=== PATIENT | female | born 1945 | race Caucasian/White ===

== ENCOUNTER 2022-05-31 03:29 | Inpatient (IN) | payer MEDICARE ==
[~2022-05-31] VITALS: Ht 170.2 cm; Wt 97.0 kg
[2022-05-31 03:59] LABS: BASOPHILS ABSOLUTE AUTO 0.05 K/mm3 (0.00-0.23); BASOPHILS PERCENT AUTO 0 % (0-2); EOSINOPHILS ABSOLUTE AUTO 0.31 K/mm3 (0.00-0.68); EOSINOPHILS PERCENT AUTO 2 % (0-6); Hemoglobin 10.3 g/dL (11.5-16.0); IMMATURE GRAN ABSOLUTE AUTO 0.05 K/mm3 (0.00-0.10); IMMATURE GRAN PERCENT AUTO 0 % (0-1); LYMPHOCYTES ABSOLUTE AUTO 2.23 K/mm3 (0.84-5.20); LYMPHOCYTES PERCENT AUTO 17 % (21-46); MONOCYTES ABSOLUTE AUTO 0.95 K/mm3 (0.16-1.47); MONOCYTES PERCENT AUTO 7 % (4-13); Mean Corpuscular HGB 28.9 pg (26.0-34.0); Mean Corpuscular HGB Conc 31.2 g/dL (31.5-36.5); Mean Corpuscular Volume 92 fL (80-100); Mean Platelet Volume 10.8 fL (9.1-12.4); NEUTROPHILS PERCENT AUTO 73 % (41-73); Platelet Count 224 K/mm3 (150-400); RDW Coefficient Variation 12.7 % (11.7-14.2); RDW Standard Deviation 43.3 fL (35.1-46.3); Red Blood Cell Count 3.57 M/mm3 (3.80-5.20); White Blood Cell Count 13.19 K/mm3 (4.00-11.30)
[2022-05-31 04:25] LABS: Albumin, Blood 3.4 g/dL (3.4-5.0); Bilirubin, Total 0.3 mg/dL (0.1-1.0); Bun/Creatinine Ratio 26.2 (12.0-20.0); Calcium, Blood 10.2 mg/dL (8.5-10.1); Creatinine, Blood 1.6 mg/dL (0.40-1.00); Globulin, Blood 3.3 g/dL (2.2-4.0); Potassium, Blood 3.9 mmol/L (3.5-5.5); Total Protein, Blood 6.7 g/dL (6.4-8.2)
[2022-05-31] MEDS ORDERED: FURO40 PO (09:30)
[2022-05-31] MEDS ORDERED: METO50 PO (09:31)
[2022-05-31] MEDS ORDERED: LOVA40 PO (09:33)
[2022-05-31] MEDS ORDERED: Amlodipine Bes2.5 MG PO (09:33)
[2022-05-31] MEDS ORDERED: METOPROLOL TAR PO (09:33)
[2022-05-31] MEDS ORDERED: SPIR25 PO (09:35)
[2022-05-31] MEDS ORDERED: METF500 PO (09:36)
[2022-05-31] MEDS ORDERED: JARDIANCE25 MG PO (09:37)
[2022-05-31] MEDS ORDERED: CENTRUM SILVER1 EAC2 PO (09:38)
[2022-05-31] MEDS ORDERED: Calcium Carbon500 MG PO (09:38)
[2022-05-31] MEDS ORDERED: Preservision S1 EACH PO (09:38)
--- NOTE | 2022-05-31 11:32 | NUR ---
PT REFUSED FULL SKIN ASSESSMENT UPON ADMISSION TO FLOOR. PT WOULD ONLY LET THIS RN AND CARLEE BRIGGS VISUALIZE HER BILATERAL LEGS/ARMS AND UPPER BACK. PT BERBALIZED "IT WAS NOT NECESSARY," SHE "HAS NO SKIN ISSUES."
--- NOTE | 2022-05-31 17:34 | NUR ---
SHIFT SUMMARY- PAIN WELL CONTROLLED WITH IV PAIN MEDS. PT IS TOLERATING SMALL SIPS AND CHIPS.
--- NOTE | 2022-06-01 05:18 | NUR ---
PT IS A&O4, SB WITH A WALKER, 5L NC AT BASELINE, PRN PAIN MEDICATION GIVEN OVERNIGHT PER EMAR FOR LEFT AND RTIGHT UPPER QUAD PAIN, OUTSIDE REQUESTED RECORDS ON CHART FOR REVIEW, CONTINUE POC
[2022-06-01 05:58] LABS: Albumin, Blood 3.2 g/dL (3.4-5.0); Bilirubin, Total 0.3 mg/dL (0.1-1.0); Bun/Creatinine Ratio 21.2 (12.0-20.0); Calcium, Blood 9.6 mg/dL (8.5-10.1); Creatinine, Blood 1.65 mg/dL (0.40-1.00); Globulin, Blood 3.3 g/dL (2.2-4.0); Magnesium, Blood 2.3 mg/dL (1.6-2.4); Potassium, Blood 4.3 mmol/L (3.5-5.5); Total Protein, Blood 6.5 g/dL (6.4-8.2)
[2022-06-01 06:04] LABS: BASOPHILS ABSOLUTE AUTO 0.04 K/mm3 (0.00-0.23); BASOPHILS PERCENT AUTO 0 % (0-2); EOSINOPHILS ABSOLUTE AUTO 0.01 K/mm3 (0.00-0.68); EOSINOPHILS PERCENT AUTO 0 % (0-6); Hematocrit 36.1 % (33.0-51.0); IMMATURE GRAN ABSOLUTE AUTO 0.06 K/mm3 (0.00-0.10); IMMATURE GRAN PERCENT AUTO 0 % (0-1); LYMPHOCYTES ABSOLUTE AUTO 1.71 K/mm3 (0.84-5.20); LYMPHOCYTES PERCENT AUTO 9 % (21-46); MONOCYTES ABSOLUTE AUTO 1.41 K/mm3 (0.16-1.47); MONOCYTES PERCENT AUTO 8 % (4-13); Mean Corpuscular HGB 29.5 pg (26.0-34.0); Mean Corpuscular HGB Conc 30.5 g/dL (31.5-36.5); Mean Platelet Volume 11.3 fL (9.1-12.4); NEUTROPHILS ABSOLUTE AUTO 15.12 K/mm3 (1.96-9.15); NEUTROPHILS PERCENT AUTO 82 % (41-73); Platelet Count 216 K/mm3 (150-400); RDW Coefficient Variation 12.8 % (11.7-14.2); RDW Standard Deviation 45.5 fL (35.1-46.3); Red Blood Cell Count 3.73 M/mm3 (3.80-5.20); White Blood Cell Count 18.35 K/mm3 (4.00-11.30)
[2022-06-01 06:06] LABS: Mean Corpuscular Volume 97 fL (80-100)
--- NOTE | 2022-06-01 09:25 | NUR ---
ALERT AND ORIENTED, MAKES NEEDS KNOWN, [place], WAITING FOR DOCTORS TO REVIEW PATIENTS NOTES FROM OTHER HOSITAL TO DECIDE IF A CHOLITHIASIS IS APPRIATE FOR PATIENT, NPO
[2022-06-01 11:25] LABS: Source, Urine Clean Catch
[2022-06-01 11:29] LABS: Appearance, Urine Clear (Clear); Bilirubin, Urine Neg (Neg); Blood, Urine Neg (Neg); Color, Urine Yellow (P-Yellow); Glucose Qualitative, Urine 3+ (Neg); Ketones, Urine Neg (Neg); Leukocyte Esterase, Urine 2+ (Neg); Nitrite, Urine Neg (Neg); Protein, Urine 3+ (Neg); Urobilinogen, Urine NORM (Normal)
[2022-06-01 12:49] LABS: Red Blood Cells, Urine Not Seen /hpf (0-2)
[2022-06-01 12:50] LABS: Bacteria Many /hpf; Hyaline Casts 0-2 /lpf (0-2); Mucus Mod (0-Heavy); Squamous Epithelial Cells Few /hpf (Few)
[2022-06-01 16:23] LABS: Base Excess Venous 6.3 mmol/L; Bicarbonate Venous 28.5 mmol/L (24.0-30.0); PCO2 Venous 64.5 mmHg (38-42); pH Blood Venous 7.31 (7.34-7.37)
--- NOTE | 2022-06-01 18:36 | NUR ---
MAKES NEEDS KNOWN, HEART RATE INCREASES WITH ANY ACTIVITE OR PATIENT BEING EMOTIONAL, RECOVERS TO 100-120S, NORMAL MEDICATIONS STARTED TODAY, SBA, CALL LIGHT WITH IN REACH, WILL RELAY TO PM RN
[2022-06-02 05:28] LABS: BASOPHILS ABSOLUTE AUTO 0.05 K/mm3 (0.00-0.23); BASOPHILS PERCENT AUTO 0 % (0-2); EOSINOPHILS ABSOLUTE AUTO 0.02 K/mm3 (0.00-0.68); EOSINOPHILS PERCENT AUTO 0 % (0-6); Hematocrit 33.8 % (33.0-51.0); IMMATURE GRAN ABSOLUTE AUTO 0.09 K/mm3 (0.00-0.10); IMMATURE GRAN PERCENT AUTO 1 % (0-1); LYMPHOCYTES ABSOLUTE AUTO 1.84 K/mm3 (0.84-5.20); LYMPHOCYTES PERCENT AUTO 11 % (21-46); MONOCYTES PERCENT AUTO 8 % (4-13); Mean Corpuscular HGB 28.9 pg (26.0-34.0); Mean Corpuscular HGB Conc 29.6 g/dL (31.5-36.5); Mean Corpuscular Volume 98 fL (80-100); Mean Platelet Volume 11.9 fL (9.1-12.4); NEUTROPHILS ABSOLUTE AUTO 13.75 K/mm3 (1.96-9.15); NEUTROPHILS PERCENT AUTO 81 % (41-73); NRBC ABSOLUTE 0.02 K/mm3 (0.00-0.02); NRBC Auto 0.1 /100 WBC (0.0-0.2); Platelet Count 203 K/mm3 (150-400); RDW Coefficient Variation 12.9 % (11.7-14.2); RDW Standard Deviation 45.9 fL (35.1-46.3); Red Blood Cell Count 3.46 M/mm3 (3.80-5.20); White Blood Cell Count 17.05 K/mm3 (4.00-11.30)
--- NOTE | 2022-06-02 05:43 | NUR ---
PT IS A&O4, 1 ASSIST WITH A WALKER TO THE BR, 6L HIFLO NC, PRN PAIN MEDICATION PER MAR, TOLERATING FULL LIQUID DIET, VSS, NO ACUTE OVERNIGHT EVENTS CONTINUE POC
[2022-06-02 05:49] LABS: Albumin/Globulin Ratio 0.9 (0.8-1.8); Bilirubin, Total 0.4 mg/dL (0.1-1.0); Bun/Creatinine Ratio 23.2 (12.0-20.0); Calcium, Blood 9.8 mg/dL (8.5-10.1); Creatinine, Blood 2.11 mg/dL (0.40-1.00); Globulin, Blood 3.5 g/dL (2.2-4.0); Magnesium, Blood 2.7 mg/dL (1.6-2.4); Potassium, Blood 4.7 mmol/L (3.5-5.5); Total Protein, Blood 6.5 g/dL (6.4-8.2)
--- NOTE | 2022-06-02 12:37 | NUR ---
PT REQUESTS NO CAFFEINE AND ADA DIET. DIET ORDER UPDATED TO REFLECT PT NEEDS/WANTS.
--- NOTE | 2022-06-02 18:00 | NUR ---
SHIFT SUMMARY: PT A/O X 4 STANDBY ASSIST WITH WALKER, PLEASANT AND COOPERATIVE WITH CARE. PT REPORTED R SIDE ABD PAIN THIS AM. DILAUDID WAS EFFECTIVE IN TREATING PAIN AND SHE HAS NOT REQUESTED ANY FURTHER. TOLERATING FULL LIQUID DIET AT THIS TIME. PT GETS VERY WINDED WITH AMBULATION, RECOVERS QUICKLY, EXP WHEEZES NOTED THIS AFTERNOON AND [place] REQUESTED FROM RT. PT IN ROOM EATING DINNER WITH SPOUSE PRESENT, NO REPORTED CONCERNS AT THIS TIME.
--- NOTE | 2022-06-03 05:06 | NUR ---
SHIFT SUMMARY PT TOLERATING LIQUID DIET. DENIES NAUSEA, COMPLAINS OF SOME PAIN AT THE BEGINNING OF SHIFT. PT CAN BE IMPATIETN WITH CARE AND NEEDS TO BE REMINDED THAT STAFF WILL ATTEND TO HER NEEDS QUICKLY THEY CAN, BUT NEED TIME TO CARE FOR OTHER PATIENTS. VERY PARTICULAR WITH CARE. PT UP STANDY TO THE BATHROOM. BED IN LOWEST POSITION AND CALL LIGHT IN REACH.
[2022-06-03 05:29] LABS: BASOPHILS ABSOLUTE AUTO 0.04 K/mm3 (0.00-0.23); BASOPHILS PERCENT AUTO 0 % (0-2); EOSINOPHILS ABSOLUTE AUTO 0.16 K/mm3 (0.00-0.68); EOSINOPHILS PERCENT AUTO 2 % (0-6); Hematocrit 31.8 % (33.0-51.0); Hemoglobin 9.5 g/dL (11.5-16.0); IMMATURE GRAN ABSOLUTE AUTO 0.06 K/mm3 (0.00-0.10); IMMATURE GRAN PERCENT AUTO 1 % (0-1); LYMPHOCYTES ABSOLUTE AUTO 1.94 K/mm3 (0.84-5.20); LYMPHOCYTES PERCENT AUTO 19 % (21-46); MONOCYTES ABSOLUTE AUTO 0.82 K/mm3 (0.16-1.47); MONOCYTES PERCENT AUTO 8 % (4-13); Mean Corpuscular HGB 28.8 pg (26.0-34.0); Mean Corpuscular HGB Conc 29.9 g/dL (31.5-36.5); Mean Corpuscular Volume 96 fL (80-100); Mean Platelet Volume 11.7 fL (9.1-12.4); NEUTROPHILS ABSOLUTE AUTO 7.47 K/mm3 (1.96-9.15); NEUTROPHILS PERCENT AUTO 71 % (41-73); Platelet Count 192 K/mm3 (150-400); RDW Coefficient Variation 12.8 % (11.7-14.2); RDW Standard Deviation 45.2 fL (35.1-46.3); White Blood Cell Count 10.49 K/mm3 (4.00-11.30)
[2022-06-03 06:07] LABS: Albumin, Blood 2.8 g/dL (3.4-5.0); Albumin/Globulin Ratio 0.8 (0.8-1.8); Bilirubin, Total 0.2 mg/dL (0.1-1.0); Bun/Creatinine Ratio 25.5 (12.0-20.0); Calcium, Blood 9.3 mg/dL (8.5-10.1); Creatinine, Blood 2.35 mg/dL (0.40-1.00); Globulin, Blood 3.5 g/dL (2.2-4.0); Magnesium, Blood 2.9 mg/dL (1.6-2.4); Potassium, Blood 4.4 mmol/L (3.5-5.5); Total Protein, Blood 6.3 g/dL (6.4-8.2)
--- NOTE | 2022-06-03 17:06 | NUR ---
SHIFT SUMMARY NO ACUTE CHANGES DURING SHIFT. PT ALERT AND ORIENTED, CALLS APPROPRIATELY. PT ON 5L NC, INCREASED TO 7 WITH AMBULATION. PT SBA FWW TO BATHROOM. PT MEDICATED WITH PRN PAIN MEDICATIONS X 1. WILL MONITOR FOR EFFECTIVENESS. 500ML NS INFUSED. WILL CONTINUE TO MONITOR. CALL LIGHT WITHIN REACH.
[2022-06-03] MEDS ORDERED: SYMBICORT 160-4.6 GM INH (19:31)
--- NOTE | 2022-06-04 04:45 | NUR ---
Shift Summary No c/o of pain or nausea this shift. Pt did state her skin was itchy, applied mosturizing cream which provided relief. Pt requested two breathing treatments, the first for wheezing and the second for tightness. She remains on 5L O2 via NC with bubbler at rest, 7L with ambulation. On tele running SR. Slept t/o most of the night. VSS, pleasant and cooperative.
[2022-06-04 06:13] LABS: BASOPHILS ABSOLUTE AUTO 0.04 K/mm3 (0.00-0.23); BASOPHILS PERCENT AUTO 0 % (0-2); EOSINOPHILS PERCENT AUTO 2 % (0-6); Hematocrit 30.7 % (33.0-51.0); Hemoglobin 9.5 g/dL (11.5-16.0); IMMATURE GRAN ABSOLUTE AUTO 0.04 K/mm3 (0.00-0.10); IMMATURE GRAN PERCENT AUTO 0 % (0-1); LYMPHOCYTES ABSOLUTE AUTO 2.34 K/mm3 (0.84-5.20); LYMPHOCYTES PERCENT AUTO 26 % (21-46); MONOCYTES ABSOLUTE AUTO 0.65 K/mm3 (0.16-1.47); MONOCYTES PERCENT AUTO 7 % (4-13); Mean Corpuscular HGB 29.2 pg (26.0-34.0); Mean Corpuscular HGB Conc 30.9 g/dL (31.5-36.5); Mean Corpuscular Volume 95 fL (80-100); Mean Platelet Volume 11.2 fL (9.1-12.4); NEUTROPHILS ABSOLUTE AUTO 5.76 K/mm3 (1.96-9.15); NEUTROPHILS PERCENT AUTO 64 % (41-73); Platelet Count 220 K/mm3 (150-400); RDW Coefficient Variation 12.8 % (11.7-14.2); RDW Standard Deviation 44.2 fL (35.1-46.3); Red Blood Cell Count 3.25 M/mm3 (3.80-5.20); White Blood Cell Count 9.03 K/mm3 (4.00-11.30)
[2022-06-04 06:49] LABS: Albumin, Blood 2.9 g/dL (3.4-5.0); Albumin/Globulin Ratio 0.8 (0.8-1.8); Bilirubin, Total 0.3 mg/dL (0.1-1.0); Bun/Creatinine Ratio 28.6 (12.0-20.0); Calcium, Blood 8.7 mg/dL (8.5-10.1); Creatinine, Blood 2.03 mg/dL (0.40-1.00); Globulin, Blood 3.5 g/dL (2.2-4.0); Potassium, Blood 3.9 mmol/L (3.5-5.5); Total Protein, Blood 6.4 g/dL (6.4-8.2)
[2022-06-04] MEDS ORDERED: CREON DR 12,001 EACH PO (11:43)
--- NOTE | 2022-06-04 14:20 | NUR ---
PT DISCHARGED THE PT VERBALIZED UNDERSTANDING OF DC ORDERS. OXYGEN WAS DELIVERED PRIOIR TO DC. THE PT WAS TRANSFERED VIA WHEELCHAIR TO THE FRONT ACCOMPANIED BY THE URBAN REDEVELOPMENT SPECIALIST AND HER
== END 2022-06-04 14:16 | disposition home or self-care (01) | DRG 438 ==
LOC: ER 03:29 → MEDS 05:40
PROVIDERS: Family Medicine; Student in an Organized Health Care Education/Training Program; ADMIT Internal Medicine
DX: K85.10 Biliary acute pancreatitis without necrosis or infection (principal); R65.11 Systemic inflammatory response syndrome (SIRS) of non-infectious origin with acute organ dysfunction; I13.0 Hypertensive heart and chronic kidney disease with heart failure and stage 1 through stage 4 chronic kidney disease, or unspecified chronic kidney disease; N17.9 Acute kidney failure, unspecified; N18.4 Chronic kidney disease, stage 4 (severe); I42.9 Cardiomyopathy, unspecified; K80.70 Calculus of gallbladder and bile duct without cholecystitis without obstruction; Z66 Do not resuscitate; I27.20 Pulmonary hypertension, unspecified; R82.71 Bacteriuria; J44.9 Chronic obstructive pulmonary disease, unspecified; E11.22 Type 2 diabetes mellitus with diabetic chronic kidney disease; K21.9 Gastro-esophageal reflux disease without esophagitis; I50.812 Chronic right heart failure; T50.1X5A Adverse effect of loop [high-ceiling] diuretics, initial encounter; Z99.81 Dependence on supplemental oxygen
CPT/HCPCS: 36415; 71045; 76705; 80053; 81001; 82803; 82947; 83690; 83735; 84484; 85025; 87086; 93005; 93010; 93306; 94640; 94664; 94760; 96374; 96375; 99285-25; A9270; J1170; J1650; J2405; J7030; J7040

== ENCOUNTER → 2023-03-27 | Outpatient (CLI) | payer OTHER ==
[~2023-03-27] MED LIST: Amlodipine Bes2.5 MG PO; CENTRUM SILVER1 EAC2 PO; CREON DR 12,001 EACH PO; Calcium Carbon500 MG PO; FURO40 PO; JARDIANCE25 MG PO; LOVA40 PO; METF500 PO; METO50 PO; METOPROLOL TAR PO; Preservision S1 EACH PO; SPIR25 PO; SYMBICORT 160-4.6 GM INH
[2023-03-27 16:07] LABS: Source, Urine Clean Catch
[2023-03-27 17:01] LABS: Appearance, Urine Hazy (Clear); Bilirubin, Urine Neg (Neg); Blood, Urine 1+ (Neg); Color, Urine Yellow (P-Yellow); Glucose Qualitative, Urine 2+ (Neg); Ketones, Urine Neg (Neg); Leukocyte Esterase, Urine 2+ (Neg); Nitrite, Urine Neg (Neg); Protein, Urine 2+ (Neg); Urobilinogen, Urine NORM (Normal); pH, Urine 6.5 (5.0-8.0)
[2023-03-27 17:11] LABS: Bacteria Few /hpf; Squamous Epithelial Cells Rare /hpf (Few); White Blood Cells, Urine TNTC /hpf (0-5)
== END ==
LOC: LAB SHORT 14:00 → LAB 14:00
PROVIDERS: Hospitalist
DX: N18.4 Chronic kidney disease, stage 4 (severe) (principal); R39.9 Unspecified symptoms and signs involving the genitourinary system
CPT/HCPCS: 81001; 87077; 87086; 87186

== ENCOUNTER 2023-12-22 19:01 | Emergency (ER) | payer OTHER ==
[~2023-12-22] VITALS: Ht 170.2 cm; Wt 84.4 kg
[~2023-12-22 19:01] MED LIST changes: +ALBU90OI INH; +CALCIUM 600 +1 EA11 PO; +FURO20 PO; +TIOT18 INH
[2023-12-22 19:42] LABS: BASOPHILS ABSOLUTE AUTO 0.06 K/mm3 (0.00-0.23); BASOPHILS PERCENT AUTO 1 % (0-2); EOSINOPHILS ABSOLUTE AUTO 0.24 K/mm3 (0.00-0.68); EOSINOPHILS PERCENT AUTO 2 % (0-6); Hematocrit 41.2 % (33.0-51.0); Hemoglobin 13.5 g/dL (11.5-16.0); IMMATURE GRAN ABSOLUTE AUTO 0.04 K/mm3 (0.00-0.10); IMMATURE GRAN PERCENT AUTO 0 % (0-1); LYMPHOCYTES ABSOLUTE AUTO 3.43 K/mm3 (0.84-5.20); LYMPHOCYTES PERCENT AUTO 30 % (21-46); MONOCYTES ABSOLUTE AUTO 1.05 K/mm3 (0.16-1.47); MONOCYTES PERCENT AUTO 9 % (4-13); Mean Corpuscular HGB 29.8 pg (26.0-34.0); Mean Corpuscular HGB Conc 32.8 g/dL (31.5-36.5); Mean Corpuscular Volume 91 fL (80-100); Mean Platelet Volume 10.7 fL (9.1-12.4); NEUTROPHILS ABSOLUTE AUTO 6.65 K/mm3 (1.96-9.15); NEUTROPHILS PERCENT AUTO 58 % (41-73); Platelet Count 262 K/mm3 (150-400); RDW Coefficient Variation 12.2 % (11.7-14.2); RDW Standard Deviation 40.2 fL (35.1-46.3); Red Blood Cell Count 4.53 M/mm3 (3.80-5.20); White Blood Cell Count 11.47 K/mm3 (4.00-11.30)
[2023-12-22 20:01] LABS: Bilirubin, Total 0.3 mg/dL (0.1-1.0); Bun/Creatinine Ratio 24.4 (12.0-20.0); Creatinine, Blood 2.13 mg/dL (0.40-1.00); Globulin, Blood 3.9 g/dL (2.2-4.0); Potassium, Blood 3.9 mmol/L (3.5-5.5); Total Protein, Blood 7.9 g/dL (6.4-8.2)
[2023-12-22 21:00] LABS: Magnesium, Blood 2.9 mg/dL (1.6-2.4)
[2023-12-22 21:30] VITALS: BP 103/78
== END 2023-12-22 21:38 | disposition home or self-care (01) ==
LOC: ER 19:01
PROVIDERS: Physician Assistant
DX: I49.9 Cardiac arrhythmia, unspecified (principal); K21.9 Gastro-esophageal reflux disease without esophagitis; E11.22 Type 2 diabetes mellitus with diabetic chronic kidney disease; N18.4 Chronic kidney disease, stage 4 (severe); J44.9 Chronic obstructive pulmonary disease, unspecified; Z87.891 Personal history of nicotine dependence; Z79.899 Other long term (current) drug therapy; Z88.2 Allergy status to sulfonamides; Z88.0 Allergy status to penicillin; Z88.1 Allergy status to other antibiotic agents
CPT/HCPCS: 71045; 80053; 83735; 84484; 85025; 93005; 93010; 99285-25

== ENCOUNTER 2024-04-02 11:58 | Inpatient (IN) | payer OTHER ==
[~2024-04-02] VITALS: Ht 170.2 cm; Wt 90.6 kg
[2024-04-02] VITALS (40 sets, daily range): BP systolic 92–142; BP diastolic 52–124
[2024-04-02 12:29] LABS: BASOPHILS ABSOLUTE AUTO 0.08 K/mm3 (0.00-0.23); BASOPHILS PERCENT AUTO 1 % (0-2); EOSINOPHILS ABSOLUTE AUTO 0.16 K/mm3 (0.00-0.68); EOSINOPHILS PERCENT AUTO 1 % (0-6); Hematocrit 41.6 % (33.0-51.0); Hemoglobin 13.6 g/dL (11.5-16.0); IMMATURE GRAN ABSOLUTE AUTO 0.04 K/mm3 (0.00-0.10); IMMATURE GRAN PERCENT AUTO 0 % (0-1); LYMPHOCYTES ABSOLUTE AUTO 3.64 K/mm3 (0.84-5.20); LYMPHOCYTES PERCENT AUTO 28 % (21-46); MONOCYTES PERCENT AUTO 8 % (4-13); Mean Corpuscular HGB 30.2 pg (26.0-34.0); Mean Corpuscular HGB Conc 32.7 g/dL (31.5-36.5); Mean Corpuscular Volume 92 fL (80-100); Mean Platelet Volume 11.4 fL (9.1-12.4); NEUTROPHILS ABSOLUTE AUTO 8.14 K/mm3 (1.96-9.15); NEUTROPHILS PERCENT AUTO 62 % (41-73); Platelet Count 202 K/mm3 (150-400); RDW Coefficient Variation 12.3 % (11.7-14.2); RDW Standard Deviation 41.6 fL (35.1-46.3); White Blood Cell Count 13.06 K/mm3 (4.00-11.30)
[2024-04-02] MEDS ORDERED: Metoprolol Tartrate 1 MG/ML 5 ML VIAL IV ONE ×2 (12:30→12:50)
[2024-04-02 12:52] LABS: Albumin, Blood 3.8 g/dL (3.4-5.0); Bilirubin, Total 0.4 mg/dL (0.1-1.0); Bun/Creatinine Ratio 26.9 (12.0-20.0); Creatinine, Blood 1.86 mg/dL (0.40-1.00); Globulin, Blood 3.8 g/dL (2.2-4.0); Potassium, Blood 4.7 mmol/L (3.5-5.5); Total Protein, Blood 7.6 g/dL (6.4-8.2)
[2024-04-02] MEDS ORDERED: FLU VACC TS2024-25(6MOS UP)/PF 45 MCG/0.5 ML SYRINGE IM SCH (14:15)
[2024-04-02] MEDS ORDERED: Dose Adjust by Pharmacy XX STA (17:38)
[2024-04-02] MEDS ORDERED: Heparin Sodium 5000 Units/ML 1ML MDV IV ONE (17:40)
[2024-04-02] MEDS ORDERED: Heparin Sodium,Porcine/0.5 NS 500 ML IV SCH (17:40)
[2024-04-02 17:45] LABS: Anti-Xa UFH, PHA Monitoring <0.10 IU/mL; International Normalized Ratio 0.99; Prothrombin Time Results 10.6 Sec (9.7-11.5)
[2024-04-02] MEDS ORDERED: Albuterol HFA200 ACT/6.7 GM INH INH PRN (17:55)
[2024-04-02] MEDS ORDERED: Tiotropium Bromide 2.5 MCG/ACT MIST INHAL (10 ACT/4 GM) INH SCH (17:55)
[2024-04-02] MEDS ORDERED: Metoprolol Tartrate 50 MG Tab PO SCH ×2 (18:00→21:00)
--- NOTE | 2024-04-02 19:34 | NUR ---
ASSUMPTION OF CARE/ SHIFT SUMMARY PT FROM ER @ APPROX 1300, PT SELF TRANSFERRED FROM ER BED TO PCU BED. PT A&O X4, ABLE TO MAKE NEEDS KNOWN, OBEYS COMMANDS, PT EDUCATED TO CALL PRIOR TO AMBULATING/PT VERBALIZED UNDERSTANDING. CONTINUOUS SPO2, SPO2 GREATER THAN 90% ON 4L O2 VIA NC/THAT IS PT BASELINE, LUNGS SOUND CLEAR T/O WITH DIMINISHED LOWER LOBES, NO SIGNS OF RESPIRATORY DISTRESS NOTED. CONTINUOUS TELE MONTIORING, PT ON DILIAZEM DRIP OF 10MLS/HR, BP STABLE WITH MAP GREATER THAN 65. PT REPORTS BEING CONTINENT OF BOTH URINE AND BOWELS, NO VOID OR BM SINCE ARRIVING TO PCU.
--- NOTE | 2024-04-02 19:51 | NUR ---
[facility] ASSUMED CARE OF PT AT 1900,BEDSIDE REPORT COMPLETED WITH [facility] NURSE.PT AWAKE,RESTING IN BED.CARDIZEM DRIP INFUSING AT 10MG/HR,HR 116-129,SBP 100'S.HEPARIN INFUSING AT 21.9ML/HR.EDUCATION ON BLEEDING RISK COMPLETED.PT DENIES CHEST PAIN,DENIES PALPITATIONS,DENIES NEEDS AT THIS TIME.PLAN OF CARE REVIEWED.PT VERBALIZES UNDERSTANDING.CALL LIGHT AND PT'S ITEMS WITHIN REACH.WILL CONTINUE TO MONITOR.
[2024-04-02] MEDS ORDERED: Mag Hydrox/AL Hydrox/Simeth 30 ML UDC PO SCH (21:00)
[2024-04-02] MEDS ORDERED: Calcium/Vit D 600 mg-400 Unit Tab PO SCH (21:00)
[2024-04-02] MEDS ORDERED: Acetaminophen 500 MG Tab PO PRN (21:05)
--- NOTE | 2024-04-02 22:08 | NUR ---
BRADYCARDIA PT'S BRADYCARDIC,HR 38,PT ASYMPTOMATIC.CARDIZEM DRIP STOPPED,BP 111/96 (103).PT STATES THAT AT HOME SHE HAD EPISODES OF BRADYCARDIA, HR DROPPING LOW 20 THEN TACHYCARDIA HIGH 200.CURRENTLY AT 40 WITH THE DRIP OFF.WILL CONTINUE TO MONITOR.
--- NOTE | 2024-04-02 23:24 | NUR ---
PROVIDER NOTIFICATION JASON Benavidez NP AT 2209 OF PT'S BRADYCARDIA .PT ASYMPTOMATIC.PROVIDER STATES TO OBTAIN AN EKG.EKG OBTAINED ,PROVIDER CALLED BACK AT 2241 AND THE EKG RESULTS READ TO HIM.PROVIDER STATES TO MONITOR BP'S BP AND KEEP HIM UPDATED IF HR STAYS LOW AND IF THERE ARE CHANGES IN PT'S CONDITION.
[2024-04-03] VITALS (8 sets, daily range): BP systolic 104–135; BP diastolic 62–98
[2024-04-03 01:18] LABS: BASOPHILS ABSOLUTE AUTO 0.06 K/mm3 (0.00-0.23); BASOPHILS PERCENT AUTO 1 % (0-2); EOSINOPHILS ABSOLUTE AUTO 0.19 K/mm3 (0.00-0.68); EOSINOPHILS PERCENT AUTO 2 % (0-6); Hematocrit 36.4 % (33.0-51.0); IMMATURE GRAN ABSOLUTE AUTO 0.05 K/mm3 (0.00-0.10); IMMATURE GRAN PERCENT AUTO 0 % (0-1); LYMPHOCYTES ABSOLUTE AUTO 2.99 K/mm3 (0.84-5.20); LYMPHOCYTES PERCENT AUTO 25 % (21-46); MONOCYTES ABSOLUTE AUTO 1.06 K/mm3 (0.16-1.47); MONOCYTES PERCENT AUTO 9 % (4-13); Mean Corpuscular HGB 30.5 pg (26.0-34.0); Mean Corpuscular Volume 92 fL (80-100); Mean Platelet Volume 11.2 fL (9.1-12.4); NEUTROPHILS ABSOLUTE AUTO 7.54 K/mm3 (1.96-9.15); NEUTROPHILS PERCENT AUTO 64 % (41-73); Platelet Count 200 K/mm3 (150-400); RDW Coefficient Variation 12.2 % (11.7-14.2); RDW Standard Deviation 41.8 fL (35.1-46.3); Red Blood Cell Count 3.94 M/mm3 (3.80-5.20); White Blood Cell Count 11.89 K/mm3 (4.00-11.30)
[2024-04-03 01:42] LABS: Albumin, Blood 3.3 g/dL (3.4-5.0); Albumin/Globulin Ratio 1.1 (0.8-1.8); Bilirubin, Total 0.3 mg/dL (0.1-1.0); Bun/Creatinine Ratio 23.1 (12.0-20.0); Creatinine, Blood 2.21 mg/dL (0.40-1.00); Magnesium, Blood 2.8 mg/dL (1.6-2.4); Phosphorus, Blood 3.8 mg/dL (2.5-4.9); Total Protein, Blood 6.3 g/dL (6.4-8.2)
[2024-04-03] MEDS ORDERED: Dose Adjust by Pharmacy XX STA (01:43)
[2024-04-03] MEDS ORDERED: Pantoprazole Sodium 20 MG Tab PO SCH (06:00)
--- NOTE | 2024-04-03 06:38 | NUR ---
SHIFT SUMMARY PT'S RHYTHM FLIPPED FROM AFIB WITH RVR AT 2343 INFORMED BY THE QUAD STAYER.PT'S SINUS DUSTY,HR 58 TO SINUS RHYTHM AT 61BPM (SEE PREVIOUS NOTES FOR THE OTHER EVENTS OVERNIGHT).PT AWAKE AT THIS TIME,DENIES CHEST PAIN,DENIES SOB,DENIES NEEDS.CALL LIGHT AND PT'S ITEMS WITHIN REACH.WILL GIVE REPORT TO DAYSHIFT NURSE, .
[2024-04-03] MEDS ORDERED: Metoprolol Tartrate 50 MG Tab PO SCH ×2 (09:00)
[2024-04-03] MEDS ORDERED: Furosemide 20 MG Tab PO SCH (09:00)
[2024-04-03] MEDS ORDERED: Spironolactone 25 MG Tab PO SCH (09:00)
[2024-04-03] MEDS ORDERED: Calcium Carbonate 500 MG Tab Chew PO SCH (09:00)
[2024-04-03] MEDS ORDERED: METO100 PO (12:02)
--- NOTE | 2024-04-03 12:39 | NUR ---
DISCHARGE SUMMARY PT A&Ox4, CALLS AND COMMUNICATES NEEDS APPROPRIATELY. BP STABLE, PT REMAINED SINUS 70's, DENIES CP/PRESSURE. SpO2> 92% ON BASELINE 4L VIA NC. SBA IN ROOM, CONTINENT OF URINE, NO BM THIS SHIFT. NO C/O PAIN. DISCHARGE EDUCATION PROVIDED WITH VISITOR AT BEDSIDE. ALL PT BELONGINGS GATHERED AND SENT WITH VISITOR. PT TAKEN OUT VIA WHEELCHAIR WITH HOME O2 BY CLINICAL STAFF MEMBER AT APPROXIMATELY 1240.
== END 2024-04-03 13:02 | disposition home health service (06) | DRG 309 ==
LOC: ER 11:58 → PCU 14:09 → ER 15:38 → PCU 16:48
PROVIDERS: Physician Assistant; ADMIT Family Medicine
DX: I48.91 Unspecified atrial fibrillation (principal); N18.4 Chronic kidney disease, stage 4 (severe); J44.9 Chronic obstructive pulmonary disease, unspecified; I12.9 Hypertensive chronic kidney disease with stage 1 through stage 4 chronic kidney disease, or unspecified chronic kidney disease; E11.22 Type 2 diabetes mellitus with diabetic chronic kidney disease; I27.20 Pulmonary hypertension, unspecified; I42.9 Cardiomyopathy, unspecified; Z99.81 Dependence on supplemental oxygen; Z88.2 Allergy status to sulfonamides; Z88.0 Allergy status to penicillin; Z88.8 Allergy status to other drugs, medicaments and biological substances; Z79.899 Other long term (current) drug therapy; Z90.49 Acquired absence of other specified parts of digestive tract
CPT/HCPCS: 36415; 71045; 80053; 83735; 84100; 84484; 85025; 85520; 85610; 85730; 93005; 93010; 94640; 94664; 94760; 94762; 96365; 96375; 99285-25; A9270; J1644; J2470

== ENCOUNTER 2024-11-04 04:25 | Inpatient (IN) | payer OTHER ==
[~2024-11-04] VITALS: Ht 170.2 cm; Wt 85.5 kg
[~2024-11-04 04:25] MED LIST changes: +METO100 PO
[2024-11-04] MEDS ORDERED: Albuterol 2.5 MG/3 ML VIAL INH SCH (04:40)
[2024-11-04 04:49] LABS: BASOPHILS ABSOLUTE AUTO 0.04 K/mm3 (0.00-0.23); BASOPHILS PERCENT AUTO 0 % (0-2); EOSINOPHILS ABSOLUTE AUTO 0.10 K/mm3 (0.00-0.68); EOSINOPHILS PERCENT AUTO 1 % (0-6); Hematocrit 37.9 % (33.0-51.0); Hemoglobin 11.5 g/dL (11.5-16.0); IMMATURE GRAN ABSOLUTE AUTO 0.03 K/mm3 (0.00-0.10); IMMATURE GRAN PERCENT AUTO 0 % (0-1); LYMPHOCYTES ABSOLUTE AUTO 2.09 K/mm3 (0.84-5.20); LYMPHOCYTES PERCENT AUTO 21 % (21-46); MONOCYTES ABSOLUTE AUTO 0.84 K/mm3 (0.16-1.47); MONOCYTES PERCENT AUTO 9 % (4-13); Mean Corpuscular HGB Conc 30.3 g/dL (31.5-36.5); Mean Corpuscular Volume 95 fL (80-100); NEUTROPHILS ABSOLUTE AUTO 6.73 K/mm3 (1.96-9.15); NEUTROPHILS PERCENT AUTO 69 % (41-73); NRBC ABSOLUTE 0.00 K/mm3 (0.00-0.02); NRBC Auto 0.0 /100 WBC (0.0-0.2); Platelet Count 222 K/mm3 (150-400); RDW Coefficient Variation 11.9 % (11.7-14.2); RDW Standard Deviation 41.8 fL (35.1-46.3); pH Blood Venous 7.42 (7.34-7.37)
[2024-11-04 05:18] LABS: Anion Gap 10.0 mmol/L (3-11); Blood Urea Nitrogen 43.0 mg/dL (8-24); CO2, Blood 33.0 mmol/L (21-32); Calcium, Blood 9.3 mg/dL (8.5-10.1); Chloride, Blood 102.0 mmol/L (98-108); Creatinine, Blood 1.73 mg/dL (0.40-1.00); Glucose, Blood 110.0 mg/dL (70-99); Potassium, Blood 3.9 mmol/L (3.5-5.5); Sodium, Blood 141.0 mmol/L (136-145)
[2024-11-04] MEDS ORDERED: PRED20 PO (05:49)
[2024-11-04] MEDS ORDERED: Ipratropium/Albuterol SulF 2.5-0.5MG/3 ML Amp INH ONE (05:50)
[2024-11-04 05:58] LABS: Influenza A, PCR NEGATIVE (NEGATIVE); Influenza B, PCR NEGATIVE (NEGATIVE); Resp Syncytial Virus, PCR NEGATIVE (NEGATIVE); SARS-Cov-2 (COVID-19) PCR, MMC NEGATIVE (NEGATIVE)
[2024-11-04] MEDS ORDERED: DOXY100 PO (06:12)
[2024-11-04] MEDS ORDERED: Metoprolol Tartrate 1 MG/ML 5 ML VIAL IV PRN (06:25)
[2024-11-04] MEDS ORDERED: NS 500 ML IV SCH (09:45)
[2024-11-04] MEDS ORDERED: Ipratropium/Albuterol SulF 2.5-0.5MG/3 ML Amp INH SCH (10:50)
[2024-11-04] MEDS ORDERED: Albuterol 2.5 MG/3 ML VIAL INH PRN (10:50)
[2024-11-04 12:55] VITALS: BP 119/75
--- NOTE | 2024-11-04 15:26 | NUR ---
PALLIATIVE CARE CONSULT: CONSULT RECEIVED TO CLARIFY CODE STATUS. SPOKE TO PRIMARY RN PRIOR TO VISIT. PER RN, PT HAD STATED SHE WASN'T SURE SHE WOULD WANT CPR. MET WITH PT AND SPOUSE IN THE ROOM. PT IS ABLE TO HAVE MEANINGFUL CONVERSATION AND IS DECISIONAL. EDUCATED PT ON CPR VS DNR STATUS. PT STATES SHE WOULD NOT WANT CPR IF HER HEART STOPS. PT IS AGREEABLE TO BEING INTUBATED IF NEEDED. SHE CHOSE FULL TREATMENT IN SECTION B. PT COMPLETED A POLST. NOTIFIED DR. ASCENCIO OF PT REQUESTING DNR/FULL MEASURES. DR. ASCENCIO GAVE ORDER TO CHANGE CODE STATUS TO LIMITED, NO CPR. ORDER PLACED AND UPDATED PRIMARY RN.
[2024-11-04 16:37] VITALS: BP 129/84
[2024-11-04] MEDS ORDERED: FUROSEMIDE40 MG PO (16:39)
[2024-11-04] MEDS ORDERED: ELIQUIS2.5 M1 PO (16:41)
[2024-11-04] MEDS ORDERED: FAMO10 PO (16:41)
[2024-11-04] MEDS ORDERED: KLOR-CON 1010 ME9 PO (16:42)
[2024-11-04] MEDS ORDERED: PANTOPRAZOLE SO40 M2 PO (16:42)
--- NOTE | 2024-11-04 18:43 | NUR ---
SHIFT SUMMARY NO ACUTE EVENTS. PT AOX4 AND CALM/COOPERATIVE W/ CARE. PT REPORTS SOB W/ EXERTION. PT ON 5L VIA NC, BASELINE 02 FOR PT. PT ON TELE, AFIB RATE OF 80S. RATE INCREASES W/ EXERTION OR REPOSITIONING. BP STABLE W/ MAPS>65. PT AFEBRILE. PURE WICK PLACED AND CLEAN ATTENDS APPLIED TO PT. NO BM DURING SHIFT. BLANCHABLE REDDNESS TO SACRUM- PT HIPS FLOATED ON PILLOWS FOR SKIN INTEGRITY. CALL LIGHT W/ IN REACH. PLAN OF CARE ONGOING.
--- NOTE | 2024-11-04 19:48 | NUR ---
ASSUMPTION ON [facility] ASSUMED PT'S CARE AT 1900,BEDSIDE REPORT COMPLETED.PT IN BED,WIDE AWAKE LISTENING TO RELAXING MUSIC ON TV.PLAN OF CARE REVIEWED.PT DENIES PAIN,DENIES NUMBNESS/TINGLING,DENIES NAUSEA,DENIES SOB,DENIES NEEDS.CALL LIGHT AND PT'S ITEMS WITHIN REACH.MONITORING ONGOING PER CAREPLAN.
[2024-11-04 20:20] VITALS: BP 122/69
[2024-11-04] MEDS ORDERED: Calcium/Vit D 600 mg-400 Unit Tab PO SCH (21:00)
[2024-11-04 23:31] VITALS: BP 122/67
[2024-11-05 03:40] VITALS: BP 133/84
[2024-11-05 05:19] LABS: BASOPHILS ABSOLUTE AUTO 0.01 K/mm3 (0.00-0.23); BASOPHILS PERCENT AUTO 0 % (0-2); EOSINOPHILS ABSOLUTE AUTO 0.00 K/mm3 (0.00-0.68); EOSINOPHILS PERCENT AUTO 0 % (0-6); Hematocrit 36.1 % (33.0-51.0); Hemoglobin 11.1 g/dL (11.5-16.0); IMMATURE GRAN ABSOLUTE AUTO 0.05 K/mm3 (0.00-0.10); IMMATURE GRAN PERCENT AUTO 0 % (0-1); LYMPHOCYTES ABSOLUTE AUTO 1.35 K/mm3 (0.84-5.20); LYMPHOCYTES PERCENT AUTO 9 % (21-46); MONOCYTES ABSOLUTE AUTO 0.32 K/mm3 (0.16-1.47); MONOCYTES PERCENT AUTO 2 % (4-13); Mean Corpuscular HGB Conc 30.7 g/dL (31.5-36.5); Mean Corpuscular Volume 94 fL (80-100); NEUTROPHILS ABSOLUTE AUTO 12.98 K/mm3 (1.96-9.15); NEUTROPHILS PERCENT AUTO 88 % (41-73); NRBC ABSOLUTE 0.00 K/mm3 (0.00-0.02); NRBC Auto 0.0 /100 WBC (0.0-0.2); Platelet Count 231 K/mm3 (150-400); RDW Coefficient Variation 12.1 % (11.7-14.2); RDW Standard Deviation 41.7 fL (35.1-46.3)
[2024-11-05 05:53] LABS: Anion Gap 9.0 mmol/L (3-11); Blood Urea Nitrogen 54.0 mg/dL (8-24); CO2, Blood 33.0 mmol/L (21-32); Calcium, Blood 9.4 mg/dL (8.5-10.1); Chloride, Blood 101.0 mmol/L (98-108); Creatinine, Blood 1.79 mg/dL (0.40-1.00); Glucose, Blood 168.0 mg/dL (70-99); Potassium, Blood 4.3 mmol/L (3.5-5.5); Sodium, Blood 139.0 mmol/L (136-145)
--- NOTE | 2024-11-05 06:31 | NUR ---
PT MONITORED DURING THE SHIFT.PT SLEPT ON/OFF.PT COMPLAINED OF NECK DISCOMFORT AND BED BEING UNCOMFORTABLE.PT REPOSITIONED,PILLOWS ADJUSTED PER PT'S REQUEST.PT REFUSED TO TURN FROM SIDE TO SIDE TO TAKE THE PRESSURE OFF HER BOTTOM.PT EDUCATED ON THE NEED TO TURN FROM SIDE TO SIDE TO PREVENT PRESSURE INJURY.PT VERBALIZES UNDERSTANDING BUT STATES THAT ITS UNCOMFORTABLE TO LAY ON HER SIDE.PT MAINTAINED OXYGEN SATURATION >92 ON 5L OXYGEN VIA NC.HR HAS BEEN THE 80'S THROUGHOUT THE NIGHT.NOTED MOMENTS OF IRRITABILITY ON/OFF THROUGHTOUT THE SHIFT.PT AWAKE,PROVIDED A TOOTH BRUSH AND TOOTH PASTE PER PT'S REQUEST.PT DENIES PAIN,DENIES NEEDS A THIS TIME.CALL LIGHT AND PT'S ITEMS WITHIN REACH
[2024-11-05 07:39] VITALS: BP 131/82
[2024-11-05] MEDS ORDERED: Enoxaparin 30 MG/0.3 ML SYR SC SCH (09:00)
--- NOTE | 2024-11-05 09:15 | NUR ---
AM NOTE: PATIENT ALERT AND ORIENTED. HARD OF HEARING. COMPLAINS OF 5/10 HEADACHE AND CHRONIC NECK PAIN THIS MORNING. 1 PERSON ASSIST WITH WALKER/CANE. UP TO RECLINER FOR BREAKFAST. ON 5L NASAL CANNULA WHICH IS PATIENTS BASELINE. SATING ABOVE 95%. LUNG SOUNDS CLEAR WITH DIMINISHED BASES. DENIES COUGH. EVEN AND UNLABORED RESPIRATIONS. TELE SHOWING SINUS RHYTHM WITH HR 60'S. DENIES CHEST PAIN/PRESSURE/PALPITATIONS. MINIMAL EDEMA TO ALL EXTREMITIES. SBP 130'S. IV SALINE LOCKED. BOWEL TONES PRESENT. DENIES ABDOMINAL PAIN/NAUSEA. TOLERATING PO DIET. PATIENT REQUEST DIABETIC DIET. PUREWICK IN PLACE DUE TO INCONTINENCE. ATTENDS IN PLACE. SKIN PALE WITH SCATTERED BRUISING AND SCAB TO RIGHT MIJARES. BLANCHABLE SACRUM/COCCYX. PATIENT ENCOURAGED TO SHIFT WEIGHT AND TURN WHEN IN BED. UP IN RECLINER AT THIS TIME. CALL LIGHT IN REACH. DENIES NEEDS.
[2024-11-05 11:43] VITALS: BP 109/70
[2024-11-05 15:14] VITALS: BP 132/72
--- NOTE | 2024-11-05 18:35 | NUR ---
SHIFT SUMMARY: NO ACUTE CHANGES. PATIENT REMAINS ON BASELINE 5L NASAL CANNULA. TELE SHOWING SR WITH HR 60-70'S. DENIES PAIN. UP TO CHAIR FOR MEALS WITH 1 PERSON ASSIST. TOLERATING PO DIET. INTERMIT USE OF PUREWICK. AT BEDSIDE AND UPDATED ON PLAN OF CARE. PALLIATIVE CARE BY TO DISCUSS POLST.
[2024-11-05 19:27] VITALS: BP 116/68
--- NOTE | 2024-11-05 19:36 | NUR ---
ASSUMPTION OF CARE ASSUMED PT'S CARE AT 1900,BEDSIDE REORT COMPLETED.PT WIDE AWAKE WATCHING TV.PLAN OF CARE REVIEWED.PT REPORTS HEARTBURN AFTER EATING A SPICY DINNER.PT ASKING FOR TUMS.PT INFORMED THAT TUMS IS SCHEDULED FOR 0900 BUT SHE HAS PEPSID PRN.PT DENIES PAINS,DENIES SOB,OXYGEN SATURATION 92% ON BASELINE 5L OF OXYGEN.PT DENIES FURTHER NEEDS.CALL LIGHT AND PT'S ITEMS WITHIN REACH.MONITORING ONGOING PER CAREPLAN.
[2024-11-05 23:41] VITALS: BP 128/65
[2024-11-06 03:32] VITALS: BP 131/72
[2024-11-06 03:46] LABS: BASOPHILS ABSOLUTE AUTO 0.02 K/mm3 (0.00-0.23); BASOPHILS PERCENT AUTO 0 % (0-2); EOSINOPHILS ABSOLUTE AUTO 0.00 K/mm3 (0.00-0.68); EOSINOPHILS PERCENT AUTO 0 % (0-6); Hematocrit 35.1 % (33.0-51.0); Hemoglobin 11.0 g/dL (11.5-16.0); IMMATURE GRAN ABSOLUTE AUTO 0.09 K/mm3 (0.00-0.10); IMMATURE GRAN PERCENT AUTO 1 % (0-1); LYMPHOCYTES ABSOLUTE AUTO 1.38 K/mm3 (0.84-5.20); LYMPHOCYTES PERCENT AUTO 8 % (21-46); MONOCYTES ABSOLUTE AUTO 0.33 K/mm3 (0.16-1.47); MONOCYTES PERCENT AUTO 2 % (4-13); Mean Corpuscular HGB Conc 31.3 g/dL (31.5-36.5); Mean Corpuscular Volume 92 fL (80-100); NEUTROPHILS ABSOLUTE AUTO 15.09 K/mm3 (1.96-9.15); NEUTROPHILS PERCENT AUTO 89 % (41-73); NRBC ABSOLUTE 0.00 K/mm3 (0.00-0.02); NRBC Auto 0.0 /100 WBC (0.0-0.2); Platelet Count 222 K/mm3 (150-400); RDW Coefficient Variation 12.0 % (11.7-14.2); RDW Standard Deviation 41.0 fL (35.1-46.3)
[2024-11-06 04:08] LABS: Anion Gap 8.0 mmol/L (3-11); Blood Urea Nitrogen 58.0 mg/dL (8-24); CO2, Blood 34.0 mmol/L (21-32); Calcium, Blood 8.7 mg/dL (8.5-10.1); Chloride, Blood 98.0 mmol/L (98-108); Creatinine, Blood 1.92 mg/dL (0.40-1.00); Glucose, Blood 176.0 mg/dL (70-99); Potassium, Blood 3.9 mmol/L (3.5-5.5); Sodium, Blood 136.0 mmol/L (136-145)
--- NOTE | 2024-11-06 06:33 | NUR ---
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
[2024-11-06] MEDS ORDERED: CefTRIAXone Sodium 1,000 MG in NS 100 ML IV SCH ×2 (07:00→09:00)
[2024-11-06 08:07] VITALS: BP 135/84
--- NOTE | 2024-11-06 09:45 | NUR ---
md contacted: this rn contacted md regarding patient requesting anxiety meds and pain meds. she states "i have them at home but don't take them often". md to place orders.
[2024-11-06 11:09] VITALS: BP 116/64
--- NOTE | 2024-11-06 13:00 | NUR ---
TRANSFER NOTE REPORT GIVEN TO NURSE ON MEDICAL FLOOR. PATIENT REMAINS A/OX4, ON O2 5L/MIN SATS >90%. NO OBVIOUS RESP DISTRESS, SPEAKS IN FULL SENTENCES. PATIENT RECEIVED PAIN MEDICATION EARLIER FOR CHRONIC NECK PAIN, REPOSITOINED MULTIPLE TIMES FOR COMFORT. WAS ABLE TO TRANSFER TO [facility] WITH SBA. PATIENT ABLE TO MAKE ALL NEEDS KNOWN AND UTILIZE CALL LIGHT APPROPRIATELY. SINUS RHYTHM ON MONITOR IN 70'S WITH OCCASIONAL PAC/PVC'S. NO NOTABLE EVENTS WHILE IN CARE OF THIS RN. RECEIVED V/O FOR PT/OT EVAL PRIOR TO TRANSFER.
--- NOTE | 2024-11-06 14:02 | NUR ---
REPORT TAKEN FOR PATIENT AT 1255. PATIENT ARRIVED TO FLOOR AT 1330. ORIENTED TO ROOM AND STAFF. PATIENT ON ROOM AIR, STAND BY ASSIST, PUREWICK IN PLACE AND CONNECTED TO SUCTION. BELONGINGS AT BEDSIDE. WARM BLANKET PROVIDED. PATIENT DENIES NEEDS.
[2024-11-06 15:03] VITALS: BP 130/70
[2024-11-06] MEDS ORDERED: Polyethylene Glycol 3350 17 gm PO SCH (15:55)
--- NOTE | 2024-11-06 17:59 | NUR ---
PATIENT TRANSFERED FROM PCU TODAY. PLANS TO [place] HOME TOMORROW. PUREWICK REMOVED DURING DAY TIME. PATIENT AMBULATED TO BATHROOM TODAY WITH FRONT WHEEL WALKER AND STAND BY HELP. PULL UP IN PLACE. BOWEL CARE STARTED. ON 5 L, WHICH IS BASELINE. ALERT AND OREIENTATED.
[2024-11-06 19:18] VITALS: BP 122/74
--- NOTE | 2024-11-06 20:16 | NUR ---
pt continues to have "racing heart beat" telemetry notified this creative services writer of two twelve second run of svt per blow mold technician pt is asymptomatic other then states shortness of breathe denies pressure and chest pain A&Ox4 pt receiving respiratory treatment now. contacted provider aware
--- NOTE | 2024-11-07 04:27 | NUR ---
PT IS A&OX4 CALM AND COOPERATIVE, PT HAD SEVERAL ESPOISODES OF "HEART RACING" TELEMETRY SHOWED RUNS OF SVT OF 6 TO 12 PROVIDER NOTIFIED PT ASYMPTOMATIC DENIES PRESSURE, CHEST PAIN OR INCREASE IN SHORTNESS OF BREATHE PT REPORTS RELIEF WITH METROPOLOL, PT REPORTS SOME RELIEF WITH RESPIRATORY TX, PT IS ON 2-3LNC SITTING UPRIGHT W HOB AT 45 DEGREE RESTING COMFORTABLY PT REQUESTED PRN PAIN MEDICATION BACK AND NECK PAIN 8/10W WARM BLANKET WRAP AROUND NECK PT REPORTS SOME RELIEF. PT RESTING COMFORTABLY RESPIRATIONS EVEN UNLABORED
[2024-11-07 04:48] VITALS: BP 135/69
[2024-11-07 04:56] LABS: BASOPHILS ABSOLUTE AUTO 0.01 K/mm3 (0.00-0.23); BASOPHILS PERCENT AUTO 0 % (0-2); EOSINOPHILS ABSOLUTE AUTO 0.00 K/mm3 (0.00-0.68); EOSINOPHILS PERCENT AUTO 0 % (0-6); Hematocrit 36.5 % (33.0-51.0); Hemoglobin 11.6 g/dL (11.5-16.0); IMMATURE GRAN ABSOLUTE AUTO 0.06 K/mm3 (0.00-0.10); IMMATURE GRAN PERCENT AUTO 1 % (0-1); LYMPHOCYTES ABSOLUTE AUTO 1.13 K/mm3 (0.84-5.20); LYMPHOCYTES PERCENT AUTO 9 % (21-46); MONOCYTES ABSOLUTE AUTO 0.57 K/mm3 (0.16-1.47); MONOCYTES PERCENT AUTO 4 % (4-13); Mean Corpuscular HGB Conc 31.8 g/dL (31.5-36.5); Mean Corpuscular Volume 91 fL (80-100); NEUTROPHILS ABSOLUTE AUTO 11.56 K/mm3 (1.96-9.15); NEUTROPHILS PERCENT AUTO 87 % (41-73); NRBC ABSOLUTE 0.00 K/mm3 (0.00-0.02); NRBC Auto 0.0 /100 WBC (0.0-0.2); Platelet Count 224 K/mm3 (150-400); RDW Coefficient Variation 12.0 % (11.7-14.2); RDW Standard Deviation 40.5 fL (35.1-46.3)
[2024-11-07 05:19] LABS: Anion Gap 8.0 mmol/L (3-11); Blood Urea Nitrogen 62.0 mg/dL (8-24); CO2, Blood 35.0 mmol/L (21-32); Calcium, Blood 8.9 mg/dL (8.5-10.1); Chloride, Blood 96.0 mmol/L (98-108); Creatinine, Blood 1.92 mg/dL (0.40-1.00); Glucose, Blood 177.0 mg/dL (70-99); Potassium, Blood 4.0 mmol/L (3.5-5.5); Sodium, Blood 135.0 mmol/L (136-145)
[2024-11-07 07:56] VITALS: BP 130/66
[2024-11-07 15:44] VITALS: BP 140/70
--- NOTE | 2024-11-07 18:23 | NUR ---
PATIENT A/OX4, UP WITH FWW AND 1PA. 5LO2 TO MAINTAIN SATS. CONTINUES ON ABX ON STEROIDS. NO EVENTS ON TELE THIS SHIFT. NO NEW CONCERNS THIS SHIFT. PATIENT HOPES TO DC HOME WITH HOME HEALTH TOMORROW.
[2024-11-07 19:30] VITALS: BP 125/75
[2024-11-07] MEDS ORDERED: Docusate Sodium Liquid 100 MG UDC PO SCH (20:20)
[2024-11-08 00:46] VITALS: BP 138/86
[2024-11-08 04:27] VITALS: BP 139/74
[2024-11-08 05:13] LABS: BASOPHILS ABSOLUTE AUTO 0.01 K/mm3 (0.00-0.23); BASOPHILS PERCENT AUTO 0 % (0-2); EOSINOPHILS ABSOLUTE AUTO 0.00 K/mm3 (0.00-0.68); EOSINOPHILS PERCENT AUTO 0 % (0-6); Hematocrit 38.0 % (33.0-51.0); Hemoglobin 12.0 g/dL (11.5-16.0); IMMATURE GRAN ABSOLUTE AUTO 0.04 K/mm3 (0.00-0.10); IMMATURE GRAN PERCENT AUTO 0 % (0-1); LYMPHOCYTES ABSOLUTE AUTO 1.00 K/mm3 (0.84-5.20); LYMPHOCYTES PERCENT AUTO 10 % (21-46); MONOCYTES ABSOLUTE AUTO 0.28 K/mm3 (0.16-1.47); MONOCYTES PERCENT AUTO 3 % (4-13); Mean Corpuscular HGB Conc 31.6 g/dL (31.5-36.5); Mean Corpuscular Volume 92 fL (80-100); NEUTROPHILS ABSOLUTE AUTO 8.98 K/mm3 (1.96-9.15); NEUTROPHILS PERCENT AUTO 87 % (41-73); NRBC ABSOLUTE 0.00 K/mm3 (0.00-0.02); NRBC Auto 0.0 /100 WBC (0.0-0.2); Platelet Count 217 K/mm3 (150-400); RDW Coefficient Variation 12.0 % (11.7-14.2); RDW Standard Deviation 40.8 fL (35.1-46.3)
[2024-11-08 05:40] LABS: Anion Gap 10.0 mmol/L (3-11); Blood Urea Nitrogen 67.0 mg/dL (8-24); CO2, Blood 34.0 mmol/L (21-32); Calcium, Blood 9.1 mg/dL (8.5-10.1); Chloride, Blood 93.0 mmol/L (98-108); Creatinine, Blood 1.86 mg/dL (0.40-1.00); Glucose, Blood 211.0 mg/dL (70-99); Potassium, Blood 4.3 mmol/L (3.5-5.5); Sodium, Blood 133.0 mmol/L (136-145)
--- NOTE | 2024-11-08 05:40 | NUR ---
SHIFT SUMMARY; PATIENT SLEPT IN SHORT INTERVALS. NO EPISODES OF SVT REPORTED FROM TELE. TELE SR 67. MEDICATED FOR PAIN WITH TYLENOL. VSS
[2024-11-08 07:33] VITALS: BP 114/74
[2024-11-08] MEDS ORDERED: CEFP200 PO (12:17)
[2024-11-08] MEDS ORDERED: PRED20 PO (12:18)
--- NOTE | 2024-11-08 16:00 | NUR ---
SHIFT SUMMARY AND DISCHARGE PATIENT ALERT AND INTERACTIVE BUT FORGETFUL AT TIMES. PATIENT EAGER TO GO HOME. DISCHARGE INSTRUCTIONS REVIEWED WITH PATIENT AND . BELONGINGS SENT HOME WITH PATIENT. DELAY IN DISCHARGE BECAUSE FORGOT REGULATOR FOR O2 AND HAD TO GO BACK HOME FOR REGULATOR. PATIENT TAKEN OUT VIA WHEELCHAIR BY ALICIA
== END 2024-11-08 15:30 | disposition home or self-care (01) | DRG 191 ==
LOC: ER 04:25 → PCU 04:26 → MEDS 11-06 13:08 → ENPENDDIS 11-08 09:21 → MEDS 11-08 15:30
PROVIDERS: Emergency Medicine; ADMIT Internal Medicine
DX: J44.1 Chronic obstructive pulmonary disease with (acute) exacerbation (principal); I13.0 Hypertensive heart and chronic kidney disease with heart failure and stage 1 through stage 4 chronic kidney disease, or unspecified chronic kidney disease; I47.10 Supraventricular tachycardia, unspecified; J96.11 Chronic respiratory failure with hypoxia; N18.4 Chronic kidney disease, stage 4 (severe); I48.91 Unspecified atrial fibrillation; E11.22 Type 2 diabetes mellitus with diabetic chronic kidney disease; I27.20 Pulmonary hypertension, unspecified; K21.9 Gastro-esophageal reflux disease without esophagitis; I50.9 Heart failure, unspecified; Z88.2 Allergy status to sulfonamides; Z88.0 Allergy status to penicillin; Z79.84 Long term (current) use of oral hypoglycemic drugs; Z99.81 Dependence on supplemental oxygen; Z87.891 Personal history of nicotine dependence; Z79.01 Long term (current) use of anticoagulants
CPT/HCPCS: 36415; 71045; 80048; 82803; 83880; 84484; 85025; 87637; 93005; 93010; 94640; 94664; 94760; 94762; 96374; 96375; 96376; 97110; 97116; 97161; 97165; 97535; 99285-25; A9270; G0378; J0696; J1938; J2919; J7030

== ENCOUNTER → 2024-11-13 | Outpatient (CLI) | payer OTHER ==
[~2024-11-13] MED LIST changes: +CEFP200 PO; +DOXY100 PO; +ELIQUIS2.5 M1 PO; +FAMO10 PO; +FUROSEMIDE40 MG PO; +KLOR-CON 1010 ME9 PO; +PANTOPRAZOLE SO40 M2 PO; +PRED20 PO
== END ==
LOC: LAB 16:18 → LAB SHORT 16:18
DX: N39.0 Urinary tract infection, site not specified (principal)
CPT/HCPCS: 87086

== ENCOUNTER 2024-11-15 13:13 | Emergency (ER) | payer OTHER ==
[~2024-11-15] VITALS: Ht 170.2 cm; Wt 85.3 kg
[2024-11-15 13:51] LABS: BASOPHILS ABSOLUTE AUTO 0.02 K/mm3 (0.00-0.23); BASOPHILS PERCENT AUTO 0 % (0-2); EOSINOPHILS ABSOLUTE AUTO 0.19 K/mm3 (0.00-0.68); EOSINOPHILS PERCENT AUTO 1 % (0-6); Hematocrit 37.0 % (33.0-51.0); Hemoglobin 11.6 g/dL (11.5-16.0); IMMATURE GRAN ABSOLUTE AUTO 0.18 K/mm3 (0.00-0.10); IMMATURE GRAN PERCENT AUTO 1 % (0-1); LYMPHOCYTES ABSOLUTE AUTO 3.10 K/mm3 (0.84-5.20); LYMPHOCYTES PERCENT AUTO 24 % (21-46); MONOCYTES ABSOLUTE AUTO 1.06 K/mm3 (0.16-1.47); MONOCYTES PERCENT AUTO 8 % (4-13); Mean Corpuscular HGB Conc 31.4 g/dL (31.5-36.5); Mean Corpuscular Volume 93 fL (80-100); NEUTROPHILS ABSOLUTE AUTO 8.60 K/mm3 (1.96-9.15); NEUTROPHILS PERCENT AUTO 65 % (41-73); NRBC ABSOLUTE 0.00 K/mm3 (0.00-0.02); NRBC Auto 0.0 /100 WBC (0.0-0.2); Platelet Count 171 K/mm3 (150-400); RDW Coefficient Variation 12.3 % (11.7-14.2); RDW Standard Deviation 42.4 fL (35.1-46.3)
[2024-11-15 14:16] LABS: Alanine Aminotransfer (ALT/SGP 42.0 U/L (12-78); Albumin, Blood 3.4 g/dL (3.4-5.0); Albumin/Globulin Ratio 1.3 (0.8-1.8); Anion Gap 6.0 mmol/L (3-11); Aspartate Aminotrans (AST/SGOT 17.0 U/L (12-37); Bilirubin, Total 0.4 mg/dL (0.1-1.0); Blood Urea Nitrogen 42.0 mg/dL (8-24); CO2, Blood 36.0 mmol/L (21-32); Calcium, Blood 8.7 mg/dL (8.5-10.1); Chloride, Blood 101.0 mmol/L (98-108); Creatinine, Blood 1.48 mg/dL (0.40-1.00); Globulin, Blood 2.7 g/dL (2.2-4.0); Glucose, Blood 143.0 mg/dL (70-99); Potassium, Blood 4.0 mmol/L (3.5-5.5); Sodium, Blood 139.0 mmol/L (136-145); Total Protein, Blood 6.1 g/dL (6.4-8.2)
[2024-11-15 19:00] VITALS: BP 131/72
== END 2024-11-15 19:20 | disposition home or self-care (01) ==
LOC: ER 13:13
PROVIDERS: Emergency Medicine
DX: R07.2 Precordial pain (principal); J44.9 Chronic obstructive pulmonary disease, unspecified; K21.9 Gastro-esophageal reflux disease without esophagitis; E11.9 Type 2 diabetes mellitus without complications; I50.9 Heart failure, unspecified; I48.91 Unspecified atrial fibrillation; Z87.891 Personal history of nicotine dependence; Z79.899 Other long term (current) drug therapy; Z79.52 Long term (current) use of systemic steroids; Z88.2 Allergy status to sulfonamides; Z88.1 Allergy status to other antibiotic agents
CPT/HCPCS: 71046; 80053; 83690; 83880; 84484; 85025; 93005; 93010; 99285-25

== ENCOUNTER → 2025-02-05 | Outpatient (CLI) | payer OTHER ==
[2025-02-05 14:38] LABS: Source, Urine Voided
[2025-02-05 15:38] LABS: Bilirubin, Urine Neg (Neg); Glucose Qualitative, Urine Neg (Neg); Ketones, Urine Neg (Neg); Leukocyte Esterase, Urine 3+ (Neg); Protein, Urine 2+ (Neg); Specific Gravity, Urine 1.015 (1.003-1.022); Urobilinogen, Urine NORM (Normal)
[2025-02-05 15:53] LABS: Color, Urine Pale Yellow (P-Yellow)
[2025-02-05 15:54] LABS: Red Blood Cells, Urine 0-2 /hpf (0-2); White Blood Cells, Urine TNTC /hpf (0-5)
== END | disposition home or self-care (01) ==
LOC: LAB 14:37 → LAB SHORT 14:37
PROVIDERS: Hospitalist
DX: N39.0 Urinary tract infection, site not specified (principal)
CPT/HCPCS: 81001; 87086